=== PATIENT | female | born 2000 | race Two or more races ===

== ENCOUNTER 2024-04-07 10:19 | Emergency (ER) | payer OTHER ==
[~2024-04-07] VITALS: Ht 152.4 cm; Wt 54.4 kg
[2024-04-07] MEDS ORDERED: 0.9 % SODIUM CHLORIDE 1,000 ML IV STA (12:16)
[2024-04-07] MEDS ORDERED: FAMOtidine 10 MG/ML (4ML VIAL) IV STA (12:18)
[2024-04-07] MEDS ORDERED: ONDANSETRON HCL 2 MG/ML VIAL IV ONE (12:30)
[2024-04-07 12:49] LABS: HEMATOCRIT 41.3 % (36.0-45.00); HEMOGLOBIN 13.2 g/dL (12.0-15.00); MEAN CORPUSCULAR HEMOGLOBIN 29.1 pg (27.00-32.0); PLATELET COUNT 236 K/uL (150-450); RED BLOOD COUNT 4.54 M/uL (4.00-6.00); RED CELL DISTRIBUTION WIDTH 14.7 % (11.5-14.5)
[2024-04-07 12:50] LABS: PH,URINE 8.5 (5.0-8.0); URINE APPEARANCE Clear; URINE BILIRRUBIN Negative (NEGATIVE); URINE BLOOD Negative; URINE COLOR Yellow; URINE GLUCOSE Negative (NEGATIVE); URINE KETONE 15 (NEGATIVE); URINE LEUKOCYTE Negative; URINE NITRATE Negative; URINE PROTEIN Trace (NEGATIVE)
[2024-04-07 12:54] LABS: URINE BACTERIA 589.6 uL (0.0-1933); URINE EPITHELIAL CELLS 17.6 uL (0.0-38.8); URINE WBC 9.5 uL (0.0-23.2)
[2024-04-07 13:01] LABS: URINE RBC 0.7 uL (0.0-20.8)
[2024-04-07 13:12] LABS: CALCIUM 9.6 mg/dL (8.5-10.1); CREATININE SERUM 0.72 mg/dL (0.55-1.02); GFR 102.25; POTASSIUM 4.95 mEq/L (3.5-5.1)
== END 2024-04-07 17:43 | disposition home or self-care (01) ==
LOC: ER 10:21
PROVIDERS: General Practice
DX: K52.9 Noninfective gastroenteritis and colitis, unspecified (principal); E86.0 Dehydration

== ENCOUNTER 2024-05-05 16:03 | Emergency (ER) | payer OTHER ==
[~2024-05-05] VITALS: Ht 152.4 cm; Wt 56.7 kg
[2024-05-05 16:15] VITALS: BP 107/74; O2SAT 99
[2024-05-05] MEDS ORDERED: CEFTRIAXONE SODIUM 1,000 MG VIAL IM STA (18:20)
[2024-05-05] MEDS ORDERED: AMOX1TAB5 PO (18:37)
[2024-05-05] MEDS ORDERED: TETANUS IMMUNE GLOBULIN 250 U/SYR DISP.SYRIN IM STA (18:38)
[2024-05-05] MEDS ORDERED: TETANUS & DIPHTHERIA TOX,ADULT 0.5 ML VIAL IM ONE (19:15)
== END 2024-05-05 20:19 | disposition home or self-care (01) ==
LOC: ER 16:05
DX: L02.412 Cutaneous abscess of left axilla (principal)